=== PATIENT | female | born 2000 | race Caucasian/White ===

== ENCOUNTER 2025-05-14 08:30 | Outpatient (RCR) | payer OTHER, SELFPAY | END 2025-06-04 13:08 | disposition home or self-care (01) | PROVIDERS: Visit Provider Orthopaedic Surgery | DX: S86.891D Other injury of other muscle(s) and tendon(s) at lower leg level, right leg, subsequent encounter (principal); S86.892D Other injury of other muscle(s) and tendon(s) at lower leg level, left leg, subsequent encounter; Z51.89 Encounter for other specified aftercare | CPT/HCPCS: 97110; 97112; 97161 ==